=== PATIENT | female | born 1980 | race Caucasian/White ===

== ENCOUNTER 2023-11-12 05:45 | Day surgery (SDC) | payer OTHER, BC ==
[~2023-11-12] VITALS: Ht 165.1 cm; Wt 84.0 kg
--- NOTE | ~2023-11-12 | OR ---
[facility] [address] [place], [place] [address] Draft DATE OF OPERATION: 11/12/2023 SURGEON: Norma Collier MD CAMP GUARD: Blue. PREOPERATIVE DIAGNOSIS: Large left ovarian cyst. POSTOPERATIVE DIAGNOSIS: Large left ovarian cyst pending pathology. PROCEDURE: Laparoscopy with left salpingo-oophorectomy. ANESTHESIA: General ET. ESTIMATED BLOOD LOSS: 10 mL. DRAINS: Godoy catheter. INDICATIONS AND FINDINGS: The patient is a 43-year-old female, who was recently found to have a large left ovarian cyst. It appeared to be simple, but was measuring over 9 cm in diameter. The patient was counseled and the decision was made to proceed with surgical evaluation. She was taken the operating room where exam under anesthesia revealed a normal-size uterus and a mass filling the cul-de-sac. The right ovary could not be appreciated on bimanual. On laparoscopy, the right tube and ovary appeared completely normal. There was a large smooth ovarian mass filling the cul-de-sac completely. It appeared to be benign. It was filled with serous fluid. DESCRIPTION OF PROCEDURE: The patient was prepped and draped in the dorsal lithotomy position. A weighted speculum was placed. The anterior lip of the cervix was visualized and grasped with single-tooth tenaculum. The Hulka clamp was then placed, tenaculum and speculum removed. The Godoy catheter was placed at the beginning of the case as well. Attention PATIENT NAME: HISLERAVIVA OPERATIVE REPORT DATE OF : 76 REPORT #: [id number] PHYSICIAN: NORMA COLLIER MD PCP: BLAYNE GALAN REPORT IS CONFIDENTIAL AND NOT TO BE RELEASED WITHOUT AUTHORIZATION [facility] [address] [place], [place] [address] Draft was directed above. The infraumbilical area was injected with 0.5% Marcaine plain. An incision was made with a knife and each layer serially elevated incised until the fascia was opened and identified. There were bleeding points in the subcu, which were controlled with cautery. Stay sutures of 0 Vicryl were placed. The peritoneum was opened bluntly and a Levi cannula introduced and the balloon inflated. Placement of the scope confirmed proper positioning. CO2 was then introduced under low pressures. When the abdomen was appropriately distended, the secondary ports were placed. These were placed laterally slightly below the level of the umbilicus. Each of these areas was transilluminated, injected with the Marcaine. Incision made with a knife and the trocars were placed under direct vision. These were both 5 mm ports. Following this, were obtained. The pelvis was evaluated and the ovary was evaluated. There was no evidence of any normal ovarian tissue visible. It appeared to be completely taken over by the cyst. Because of this, the decision was made to proceed with excision. The LigaSure [place] device was then used to serially coagulate and divide the utero-ovarian pedicle. The infundibulopelvic ligament was isolated and this was also coagulated and divided. A 0 PDS Endoloop was placed assuring further hemostasis. Slightly more dissection was done along the broad ligament and this freed the specimen and it was placed into the cul-de-sac. The 10 mm scope was switched to the 5 and placed into the side port. The 15 mm bag was introduced through the center port and the specimens were placed in the bag and brought up to the center port. At this point, the Levi was removed and the bag was opened at the skin. An 18-gauge needle was used to drain the fluid from the cyst. When it was small enough, the bag was brought through the incision and the bag was intact. Following this, the Levi was replaced into the umbilical site as was the 10 mm scope. The abdomen was reinflated and the pelvis was again visualized. It was irrigated and inspected and there was no evidence of any ongoing bleeding. The procedure was terminated with removal of the abdominal instruments after allowing as much CO2 as possible to escape. The stay sutures of this umbilicus were identified and the fascial incision was closed with a running suture of 0 Vicryl. The stay sutures were tied across as well. The skin incisions were closed with subcuticular sutures of 3-0 Vicryl Rapide. All sponge and needle counts were correct. She tolerated the procedure well and was taken to the recovery room in good condition. Norma Collier MD PJW/MODL /[id number] PATIENT NAME: AVIVA ALMONTE OPERATIVE REPORT DATE OF : 76 REPORT #: [id number] PHYSICIAN: NORMA COLLIER MD PCP: BLAYNE GALAN REPORT IS CONFIDENTIAL AND NOT TO BE RELEASED WITHOUT AUTHORIZATION [place] [id number] Draft Copies: ~ PATIENT NAME: AVIVA ALMONTE MELA OPERATIVE REPORT DATE OF : 76 REPORT #: [id number] PHYSICIAN: NORMA COLLIER MD PCP: BLAYNE GALAN REPORT IS CONFIDENTIAL AND NOT TO BE RELEASED WITHOUT AUTHORIZATION
[~2023-11-12 05:45] MED LIST: LACTATED RINGER'S 1,000 ML IV SCH; MILI 0.25-0.031 EACH PO
[2023-11-12 05:59] VITALS: BP 135/83
[2023-11-12] MEDS ORDERED: LIDOCAINE HCL 2% 20 MG/ML VIAL INJ ONE (06:43)
[2023-11-12] MEDS ORDERED: KETOROLAC TROMETHAMINE 30 MG/ML VIAL ONE (06:43)
[2023-11-12] MEDS ORDERED: LIDOCAINE HCL 2% 5 ML SDV ONE (06:43)
[2023-11-12] MEDS ORDERED: MIDAZOLAM HCL 2 MG/2 ML VIAL ONE (06:43)
[2023-11-12] MEDS ORDERED: SUGAMMADEX SODIUM 200 MG/2 ML ML ONE (06:43)
[2023-11-12] MEDS ORDERED: KETAMINE in NS 50 MG/5 ML SYR ONE (06:43)
[2023-11-12] MEDS ORDERED: ACETAMINOPHEN 1,000 MG/100 ML VIAL ONE (06:43)
[2023-11-12] MEDS ORDERED: dexmedeTOMIDine HCl 200 MCG/2 ML VIAL ONE (06:43)
[2023-11-12] MEDS ORDERED: SCOPOLAMINE 1 MG/3 DAYS PATCH 1 EACH TDSY ONE (06:43)
[2023-11-12] MEDS ORDERED: fentaNYL citrate 100 MCG/2 ML VIAL ONE ×2 (06:43→08:07)
[2023-11-12] MEDS ORDERED: DEXAMETHASONE SOD PHOS 4 MG/ML VIAL ONE (06:43)
[2023-11-12] MEDS ORDERED: propofoL 200 MG/20 ML VIAL ONE (06:43)
[2023-11-12] MEDS ORDERED: ondansetron HCL 4 MG/2 ML VIAL ONE (06:43)
[2023-11-12] MEDS ORDERED: ROCURONIUM BROMIDE 50 MG/5 ML SYR ONE (06:43)
[2023-11-12] MEDS ORDERED: IBLOOD GLUCOSE TEST STRIP 1 EA TEST VI PRN ×2 (07:00→07:45)
[2023-11-12] MEDS ORDERED: LIDOCAINE HCL 1% 5 ML SDV INJ ONE (07:00)
[2023-11-12] MEDS ORDERED: FAMOTIDINE 20 MG/ 2 ML VIAL IV SCH (07:00)
[2023-11-12] MEDS ORDERED: HEParin SOD (PORCINE) 5,000 UNIT/0.5 ML SYR SUB-Q SCH ×2 (07:00→09:00)
[2023-11-12] MEDS ORDERED: METOCLOPRAMIDE HCL 10 MG/2 ML SDV IV SCH (07:00)
[2023-11-12] MEDS ORDERED: ondansetron HCL 4 MG/2 ML VIAL IV PRN ×2 (07:45→08:30)
[2023-11-12] MEDS ORDERED: fentaNYL citrate 50 MCG/ML SDV IV PRN (07:45)
[2023-11-12] MEDS ORDERED: NALOXONE HCL 0.4 MG SYR IV PRN ×2 (07:45→08:30)
[2023-11-12] MEDS ORDERED: HYDROmorphone HCL 1 MG/ML SYR IV PRN (07:45)
[2023-11-12] MEDS ORDERED: droPERidol 5 MG/2 ML VIAL IV PRN (07:45)
[2023-11-12] MEDS ORDERED: PROCHLORPERAZINE EDISYLATE 10 MG/2 ML VIAL IV PRN ×2 (07:45→08:30)
[2023-11-12] MEDS ORDERED: LACTATED RINGER'S 1,000 ML IV ONE (08:13)
[2023-11-12] MEDS ORDERED: MORPHINE SULFATE 10 MG/ML VIAL IV PRN (08:30)
[2023-11-12] MEDS ORDERED: METOCLOPRAMIDE HCL 10 MG/2 ML SDV IV PRN (08:30)
[2023-11-12] MEDS ORDERED: MAGNESIUM HYDROXIDE/AL HYDROX 30 ML CUP PO PRN (08:30)
[2023-11-12] MEDS ORDERED: LACTATED RINGER'S 1,000 ML IV SCH (08:30)
[2023-11-12] MEDS ORDERED: FAMOTIDINE 20 MG TAB PO PRN (08:30)
[2023-11-12] MEDS ORDERED: ondansetron HCL 4 MG TAB PO PRN (08:30)
[2023-11-12] MEDS ORDERED: OXYCODONE/APAP 5/325 TAB PO PRN (08:30)
[2023-11-12] MEDS ORDERED: LIDOCAINE 2% VISCOUS 6 ML SYR TOP ONE (08:30)
--- NOTE | 2023-11-12 08:39 | NUR ---
11/12/23 0839 Zully Pink 0828- PT ARRIVES TO PACU NONAROUSABLE TO STIMULI WITH AN OPA IN PLACE. RESP EVEN AND UNLABORED. OXYGEN SAT HIGH 90'S ON 6L VIA MASK. 0835- PT MOVING HER JAW AROUND. ASKED PT TO OPEN HER MOUTH TO REMOVE THE OPA. PT IS ABLE TO OPEN HER MOUTH SLIGHTLY, OPA REMOVED. OXYGEN MASK REPLACED AT 6L. 0837- DR. PINEDA AT THE BEDSIDE TO CHECK ON THE PT. PT DOES NOT OPEN EYES OR GIVE VERBAL RESPONSES.
[2023-11-12 09:16] VITALS: BP 110/56
[2023-11-12 10:15] VITALS: BP 110/71
--- NOTE | 2023-11-12 10:30 | NUR ---
LE 0915 PATIENT BACK TO DAY SURGERY TREATMENT ROOM. PATIENT ALERT AND ORIENTED. BREATHING EQUAL AND UNLABORED. OXYGEN SATURATIONS ABOVE 90% ON ROOM AIR. PATIENT DENIES PAIN OR BEING NAUSEATED. SURGICAL DRESSINGS CLEAN, DRY AND INTACT. SCD'S ON. IVF INFUSING. PATIENT GIVEN WATER AND JELLO. LE [address] DR[address] PINEDA AT BEDSIDE TO TALK WITH PATIENT. LE 1000 PATIENT AMBULATED TO THE RESTROOM. PATIENT VOIDED CLEAR AND YELLOW URINE WITH A BIT OF SPOTTING. JN PAD AND MESH UNDERWEAR GIVEN. LE 1015 PATIENT ALERT AND ORIENTED. BREATHING EQUAL AND UNLABORED. OXYGEN SATURATIONS ABOVE 90% ON ROOM AIR. PATIENT DENIES PAIN OR BEING NAUSEATED. PATIENT SURGICAL SITE CLEAN, DRY AND INTACT. PATIENT DRESSED SELF. PATIENT HAS MET DISCHARGE CRITERIA. PATIENT GIVEN DISCHARGE INSTRUCTIONS. NO QUESTIONS AT THIS TIME. PATIENT WHEELED OUT OF FACILITY. NO FUTHER NEEDS.
[2023-11-12] MEDS ORDERED: IBUPROFEN 800 MG TAB PO SCH (14:00)
--- NOTE | 2023-11-14 16:51 | PATH ---
[facility] [address] [place], [place] [address] Signed SPECIMEN(S): A LEFT OVARY, FALLOPIAN TUBE AND CYST SPECIMEN SOURCE: A. LEFT OVARY, FALLOPIAN TUBE AND CYST CLINICAL HISTORY: Left ovarian cyst FINAL PATHOLOGIC DIAGNOSIS: Left ovary, fallopian tube and cyst: - Benign simple ovarian serous cyst. - Segment of benign fimbriated oviduct. JVR:ana MICROSCOPIC EXAMINATION: Histologic sections of all submitted blocks are examined by light microscopy. These findings, together with the gross examination, support the pathologic diagnosis. GROSS DESCRIPTION: The specimen, labeled and designated "Karl, left ovary, fallopian tube and cyst," is received in formalin and consists of ovary with attached fallopian tube. The ovary measures 7.5 x 6.5 x 5.5 cm. Serosal surface is pink-monroy, smooth and fluctuating. The ovary weight 140 g. Sectioning through the ovary reveals cyst that measure 7.0 cm in diameter. The cyst is filled with a clear and partially hemorrhagic fluid. The inner surface of the cyst is smooth. Papillary excrescences are not grossly identified. Fallopian tube shows fimbria and violaceous and smooth serosa. Fallopian tube measure 6 cm in length and 0.6 cm in diameter. Sectioning through the tube is grossly unremarkable. Cassette Summary: (A1-A2) ovary and cyst, banking representative sections (A3) fallopian tube, banking representative sections JS (under the direct supervision of a pathologist) The Gross Description was prepared using a voice recognition system. The report was reviewed for accuracy; however, sound-alike word errors, addition and/or deletions may occur. If there is any question about this report, please contact Client Services. PATIENT NAME: AVIVA ALMONTE PATHOLOGY DATE OF : 76 REPORT #: [id number] PHYSICIAN: ROLANDA VIZCAINO PCP: BLAYNE GALAN REPORT IS CONFIDENTIAL AND NOT TO BE RELEASED WITHOUT AUTHORIZATION [facility] [address] [place], [place] [address] Signed ADDITIONAL NOTES: Immunohistochemical and/or in situ hybridization studies if performed in this case included appropriate positive controls that reacted as expected. This test was developed and its performance characteristics determined by [facility]. It has not been cleared or approved by the U.S. Food and Drug Administration. The FDA has determined that such clearance or approval is not necessary. This test is used for clinical purposes. It should not be regarded as investigational or for research. [facility] is certified under the Clinical Laboratory Improvement Amendments of 1988 (CLIA) as qualified to perform high complexity clinical laboratory testing. PERFORMING LABORATORY: Technical component was performed by [facility], [address] [place] [id number] (CLIA# [id number]). Professional interpretation was performed by [facility], [address] [place] [id number] (CLIA#: [id number]). Diagnostician: Willam Ramos MD Pathologist Electronically Signed 11/14/2023 Copies: ~ PATIENT NAME: AVIVA ALMONTE PATHOLOGY DATE OF : 76 REPORT #: [id number] PHYSICIAN: ROLANDA VIZCAINO PCP: BLAYNE GALAN REPORT IS CONFIDENTIAL AND NOT TO BE RELEASED WITHOUT AUTHORIZATION
== END 2023-11-12 10:15 | disposition home or self-care (01) ==
LOC: DS 05:45
PROVIDERS: ATTEND Obstetrics & Gynecology
PROC: 0UB14ZZ Excision of Left Ovary, Percutaneous Endoscopic Approach (ICD-10-PCS; 2023-11-12)
PROC: 0UB64ZZ Excision of Left Fallopian Tube, Percutaneous Endoscopic Approach (ICD-10-PCS; principal; 2023-11-12 07:30)
DX: N83.202 Unspecified ovarian cyst, left side (principal); K58.9 Irritable bowel syndrome, unspecified; Z88.0 Allergy status to penicillin; Z88.1 Allergy status to other antibiotic agents
CPT/HCPCS: 00840; J0131; J1100; J1644; J1885; J2001; J2250; J2405; J2704; J2765; J3010; J3490; J7121